=== PATIENT | female | born 1955 | race Caucasian/White ===

== ENCOUNTER → 2017-06-19 | Outpatient (CLI) | payer BC ==
[~2017-06-19] MED LIST: ALPR-411 PO; CALC-20 PO; CITA20TA9 PO; GLC/500 PO; LISI2.5T5 PO; MULT1CAP3 PO; folic acid PO; vit D PO
[2017-06-19 12:48] LABS: ALT/SGPT 22 U/L (12-78); BLOOD UREA NITROGEN 15 mg/dl (7-18); BUN/CREATININE RATIO 23.9 (10-20); CALCIUM 8.8 mg/dl (8.5-10.1); CARBON DIOXIDE 28 mmol/L (21-32); CHLORIDE 106 mmol/L (98-107); CHOLESTEROL 188 mg/dl (0-200); CREATININE 0.62 mg/dl (0.60-1.20); GLUCOSE 83 mg/dl (70-99); POTASSIUM 4.3 mmol/L (3.5-5.1); SODIUM 140 mmol/L (136-145); TRIGLYCERIDES 156 mg/dl (0-150); VERY LOW DENSITY LIPOPROT CALC 31 mg/dl
[2017-06-19 12:49] LABS: CREATININE RANDOM URINE 38.8 mg/dl
[2017-06-19 12:58] LABS: ALB/GLOB RATIO 1.3 (0.9-2); ALKALINE PHOSPHATASE 55 U/L (45-117); AST/SGOT 12 U/L (15-37); HDL CHOLESTEROL 47 mg/dl; LDL CHOLESTEROL CALCULATED 110 mg/dl
[2017-06-19 13:09] LABS: ESTIMATED AVERAGE GLUCOSE 111 mg/dl; HA1C FLAG Normal (Normal)
== END | disposition home or self-care (01) ==
LOC: C.LAB 09:41
PROVIDERS: ATTEND Family Medicine
DX: E11.9 Type 2 diabetes mellitus without complications (principal); F41.8 Other specified anxiety disorders